=== PATIENT | female | born 1965 | race Caucasian/White ===

== ENCOUNTER 2019-09-19 14:41 | Outpatient (CLI) | payer OTHER, SELFPAY ==
--- NOTE | ~2019-09-19 | DEXA_ITS ---
BMD(1) Young-Adult(2) Age-Matched(3) Region (g/cm2) T-score Z-score WHO Classification L1 1.130 -0.1 0.5 Normal L2 1.149 -0.5 0.1 Normal L3 1.172 -0.4 0.2 Normal L4 1.167 -0.4 0.2 Normal L1-L4 1.156 -0.3 0.2 Normal Trend: L1-L4 Change vs Change vs Measured Age BMD(1) Baseline Previous Date ([age]) (g/cm2) (%) (%) 09/19/2019 [age] 1.156 baseline - 1 - Statistically 68% of repeat scans fall within 1SD (+- 0.010 g/cm2 for AP Spine L1-L4) 2 - [place] (Combined [employer]ANES (ages 20-30) / [employer] (ages 20-40)) AP Spine Reference Population (v112) 3 - Matched for Age, Weight (females 25-100 kg), Ethnic 11 - World Health Organization - Definition of Osteoporosis and Osteopenia for Women: Normal = T-score at or above -1.0 SD; Osteopenia = T-score between -1.0 and -2.5 SD; Osteoporosis = T-score at or below -2.5 SD; (WHO definitions only apply when a young healthy Women reference database is used to determine T-scores.) Printed: 09/19/2019 3:21:15 PM (13.60)76:3.00:50.00:12.0 0.00:9.48 0.60x1.05 22.7:%Fat=44.3% 0.00:0.00 0.00:0.00 Filename: [id number] Scan Mode: Standard;OneScan 37.0 Quip [id number] BMD(1) Young-Adult(2,7) Age-Matched(3) Region (g/cm2) T-score Z-score WHO Classification Neck Left 0.891 -1.1 -0.2 Osteopenia Right 0.883 -1.1 -0.3 Osteopenia Mean 0.887 -1.1 -0.2 Osteopenia Difference 0.008 0.1 0.1 - Total Left 0.992 -0.1 0.3 Normal Right 0.974 -0.3 0.2 Normal Mean 0.983 -0.2 0.3 Normal Difference 0.018 0.1 0.1 - Hip [place] Length Comparison (mm) (Right = 106.0 mm) (Mean = 105.6 mm) (Left = 110.4 mm) Trend: Total Mean Change vs Change vs Measured Age BMD(1) Baseline Previous Date (years) (g/cm2) (%) (%) 09/19/2019 53.9 0.983 baseline - 1 - Statistically 68% of repeat scans fall within 1SD (+- 0.010 g/cm2 for DualFemur Total) 2 - [place] (Combined NHANES (ages 20-30) / [employer] (ages 20-40)) Femur Reference Population (v112) 3 - Matched for Age, Weight (females 25-100 kg), Ethnic 7 - Dual[employer]emur Total T-score difference is 0.1. Asymmetry is None. 11 - World Health Organization - Definition of Osteoporosis and Osteopenia for Women: Normal = T-score at or above -1.0 SD; Osteopenia = T-score between -1.0 and -2.5 SD; Osteoporosis = T-score at or below -2.5 SD; (WHO definitions only apply when a young healthy Women reference database is used to determine T-scores.) Printed: 09/19/2019 3:21:16 PM (13.60); Filename: [id number]; Right Femur; 17.8:%Fat=28.9%; Neck Angle (deg)= 55; Scan Mode: Standard 37.0 uGy; Left Femur; 16.9:%Fat=32.0%; Neck Angle (deg)= 56; Scan Mode: Standard 37.0 uGy [employer] [id number] Dear Michaela Eubanks, Your patient Saida Stewart completed a BMD test on 09/19/2019 using the [employer] DXA System (analysis version: 13.60) manufactured by [employer]. The following summarizes the results of our evaluation. PATIENT BIOGRAPHICAL: Name: Saida Stewart Date: 1965 Height: 64.0 in. Gender: Female Exam Date: 09/19/2019 Weight: 164.0 lb
--- NOTE | ~2019-09-19 | MM_ITS ---
EXAMINATION: MM screening lyndsay BI w milka HISTORY: Screening mammogram TECHNIQUE: Craniocaudal and mediolateral oblique 3-D tomosynthesis images were obtained and synthetic 2-D images were generated. CAD analysis was submitted and interpreted. COMPARISON: 03/22/2017 BREAST PARENCHYMAL COMPOSITION: There are scattered areas of fibroglandular density. FINDINGS: There is no evidence of suspicious mass, calcification, or architectural distortion to sugg est malignancy in either breast. There has been no suspicious interval change. IMPRESSION: 1. No mammographic evidence of malignancy. 2. Recommend routine screening mammography in one year. BI-RADS Category 1: Negative Reviewed, dictated and finalized at location A.
== END 2019-09-19 14:42 | disposition home or self-care (01) ==
LOC: CHSIMG 14:45
PROVIDERS: PCP Physician Assistant; Visit Provider Nurse Practitioner Women's Health
DX: Z12.31 Encounter for screening mammogram for malignant neoplasm of breast (principal); M81.0 Age-related osteoporosis without current pathological fracture
CPT/HCPCS: 77063; 77067; 77080

== ENCOUNTER 2019-10-10 09:10 | Outpatient (CLI) | payer OTHER, SELFPAY ==
--- NOTE | ~2019-10-10 | XR_ITS ---
XR chest 2V DATE: 10/10/2019 09:25 INDICATION: Cough, shortness of breath TECHNIQUE: 2 views COMPARISON: 05/04/2016 PA chest FINDINGS: Normal heart size. No hilar or mediastinal enlargement. Mild aortic calcification and minim al unfolding. No pulmonary infiltrate or consolidation, pleural effusion or pulmonary vascular congestion or pneumo thorax. Diffuse osteopenia. IMPRESSION: No active cardiopulmonary disease Aortic atherosclerosis Osteopenia Reviewed, dictated and finalized at location B.
== END 2019-10-10 09:11 | disposition home or self-care (01) ==
LOC: CHSIMG 09:13
PROVIDERS: PCP Nurse Practitioner Family; Visit Provider Nurse Practitioner Family
DX: R05 Cough (principal)
CPT/HCPCS: 71046

== ENCOUNTER 2020-02-22 16:14 | Emergency (ER) | payer OTHER, SELFPAY ==
--- NOTE | ~2020-02-22 | XR_ITS ---
EXAMINATION: XR chest 2V DATE: 02/22/2020 16:39 INDICATION: Shortness of breath. TECHNIQUE: Frontal and lateral views of the chest were obtained. COMPARISON: Chest 2 views 10/10/2019 FINDINGS: There is mild scarring at the lung apices. No pleural effusion or pneumothorax. The heart s ize is normal. IMPRESSION: 1. Stable mild scarring at the lung apices. Reviewed, dictated and finalized at location A. R EXPEDITION GUIDE
[2020-02-22 16:14] VITALS: BP 144/101; PULSE 99; RESP 16; TEMP 36.9; O2SAT 95
--- NOTE | 2020-02-22 16:27 | ECG_ITS ---
Measurements Intervals [place] Rate: 89 P: 50 MN: 149 QRS: 69 QRSD: 95 T: 54 QT: 363 QTc: 442 Interpretive Statements SINUS RHYTHM NORMAL ECG Electronically Signed On 02-24-2020 7:21:31 [employer] UNION EXAMINER by Kenny Rogers D.O.
[2020-02-22 16:51] LABS: Basophils Absolute Auto 0.05 K/mm3 (0.00-0.10); Basophils Percent Auto 0.7 % (0.0-1.0); Eosinophils Absolute Auto 0.15 K/mm3 (0.02-0.50); Eosinophils Percent Auto 2.2 % (1.0-6.0); Hemoglobin 14.3 g/dL (12.0-15.0); Immature Granulocyte Absolute 0.02 K/mm3 (0.00-0.00); Immature Granulocyte Percent A 0.3 % (0.0-0.0); Lymphocytes Percent Auto 28.1 % (18.0-42.0); Mean Corpuscular Volume 91.1 fL (78.0-102.0); Mean Platelet Volume 9.9 fl (9.2-11.8); Monocytes Absolute Auto 0.36 K/mm3 (0.10-0.90); Monocytes Percent Auto 5.3 % (2.0-11.0); Neutrophils Absolute Auto 4.3 K/mm3 (1.7-7.2); Neutrophils Percent Auto 63.4 % (50.0-70.0); Platelet Count Result 221 K/mm3 (150-420); Red Blood Count 4.61 M/mm3 (4.20-5.40); Red Cell Distribution Width 12.4 % (11.6-14.4); White Blood Count 6.8 K/mm3 (4.8-10.8)
[2020-02-22 16:52] LABS: Add Urine Microscopic? YES; Appearance Urine Clear (Clear); Bilirubin Urine Negative (Negative); Blood Urine Negative (Negative); Color Urine Yellow (Yellow); Glucose Urine UA Negative (Negative); Ketones Urine Negative (Negative); Leukocyte Esterase Ur 1+ LEU/UL (Negative); Nitrate Urine Negative (Negative); Protein Urine Negative (Negative); Urobilinogen Urine 0.2 mg/dL (0.2-1.0)
[2020-02-22 16:56] LABS: Bacteria Urine 1+ /hpf; RBC Urine None seen /hpf (0-2); Squamous Epithelial Cell Urine Moderate /hpf (Few); WBC Urine 0-3 /hpf (0-3)
[2020-02-22 17:14] VITALS: BP 146/101; PULSE 94; RESP 15; O2SAT 95
[2020-02-22 17:20] LABS: Alanine Aminotransferase 21 U/L (14-59); Albumin Level 3.7 g/dL (3.4-5.0); Alkaline Phosphatase 62 U/L (46-116); Anion Gap 9 mmol/L (8-16); Aspartate Amino Transferase 13 U/L (15-37); Bilirubin,Total 0.3 mg/dL (0.00-1.00); Blood Urea Nitrogen 4 mg/dL (7-18); Calcium 8.7 mg/dL (8.5-10.1); Carbon Dioxide 28 mmol/L (21-32); Chloride 105 mmol/L (98-108); Estimated Glomerular Filt Rate > 60; Ethanol 4 mg/dL (0-6); Glucose 108 mg/dL (70-99); Osmolality Calculated 291 mOsm/kg (285-295); Phenytoin Dilantin < 1 ug/mL (10-20); Potassium 2.9 mmol/L (3.5-5.1); Salicylate 7.3 mg/dL (2.8-20.0); Sodium 142 mmol/L (136-145); Thyroid Stimulating Hormone 1.38 uIU/mL (0.36-3.74); Total Protein 6.5 g/dL (6.4-8.2)
[2020-02-22 17:22] LABS: Acetaminophen < 1 ug/mL (10-30)
--- NOTE | 2020-02-22 17:50 | ED.PSYCH ---
HPI - Psych General Chief Complaint: Psychiatric Symptoms Stated Complaint: 54YO w/ known h.o JESSE, Bipolar and schizophrenia currently on Risperdal here c/o racing thoughts and inability to calm down. Blames socioeconomic status and social issues in her family that make her feel this way. Denies suicidal or homicidal ideation.attempt. Related Data Home Medications Medication Instructions Recorded Confirmed risperidone 1 mg PO HS 02/22/20 02/22/20 Allergies Allergy/AdvReac Type Severity Reaction Status Date / Time codeine Allergy Intermediate hyper and Verified 09/03/19 08:54 anxious ibuprofen Allergy Intermediate Nausea and Verified 09/03/19 08:54 Vomiting Review of Systems Review of Systems: All systems reviewed & are unremarkable except as noted in HPI and below Constitutional: Constitutional: Reports no additional constitutional complaints Eyes: Eyes: Reports no additional eye complaints ENT: Reports system reviewed and no additional complaints, except as documented Cardiovascular: Cardiovascular: Reports no additional cardiovascular complaints Respiratory: Respiratory: Reports no additional respiratory complaints Gastrointestinal: Gastrointestinal: Reports no additional gastrointestinal complaints Genitourinary: Genitourinary: Reports no additional female genitourinary complaints Musculoskeletal: Musculoskeletal: Reports no additional musculoskeletal complaints Integumentary/Breasts: Skin/Breast: Reports system reviewed and no additional complaints, except as docu Neurologic: Reports system reviewed and no additional complaints, except as documented Psychiatric: Psychiatric: Reports anxiety, Denies homicidal ideation and Denies suicidal ideation Endocrine: Endocrine: Reports no additional endocrine complaints Hematologic/Lymphatic: Hematologic/Lymphatic: Reports no additional hematologic/lymphatic complaints Allergic/Immunologic: Allergic/Immunologic: Reports no additional allergic/immunologic complaints PMFSH Past Medical History Medical History Anxiety Bipolar 1 disorder, mixed Schizophrenia Seasonal allergies Exam Const: General: healthy appearing, no acute distress and alert Nutritional Appearance: well nourished and thin Orientation/consciousness: patient oriented x3 Limitations: no limitations HENMT: Head: normal to inspection Eyes: Conjunctivae: conjunctivae normal Pupils: Equal, round and reactive pupils present Neck: Neck: normal visual inspection Chest: Chest palpation & inspection: normal inspection of the chest Resp: Effort & Inspection: normal respiratory effort Auscultation: clear to auscultation bilaterally Cardio: Rate: regular rate Rhythm: regular rhythm GI: Inspection: non-distended GI Palp: Yes Soft to palpation, No Tenderness to palpation present (GI), No Guarding due to palpation present (GI) and No Rigid due to palpation : General: Yes no CVA tenderness Back/Spine/Pelvis: Back: no CVA tenderness Skin: General skin exam: normal color and no jaundice Rashes: no rashes Neuro: General: patient oriented x3, moves all extremities, no meningeal signs, no focal motor deficits and CN's II-XI intact bilaterally Cranial nerves: Yes Nystagmus not present Speech: normal speech Gait exam (Neuro): Normal gait present Extrem: General: normal to inspection Psych: Appearance: grossly normal Thought content: No Suicidality present, No Homicidality present and Yes other Other: Anxious Course Course Emergency Course: [facility] called and they recommend d/c patient home and having her continue her current medical regimen and f/u with Psych on tuesday. Vital Signs Vital signs: Vital Signs Temperature 98.5 F 02/22/20 16:14 Pulse Rate 99 02/22/20 16:14 Respiratory Rate 16 02/22/20 16:14 Blood Pressure 144/101 H 02/22/20 16:14 Pulse Oximetry 95 02/22/20 16:14 Temperature
[2020-02-22] MEDS: POTASSIUM CHLORIDE 20 MEQ TABLET 40 MEQ PO (17:59)
[2020-02-22 18:39] LABS: Amphetamine Screen Urine Negative (Negative); Barbiturate Screen Urine Negative (Negative); Benzodiazepines Screen Urine Negative (Negative); Cannabinoid Screen Urine Positive (Negative); Cocaine Screen Urine Negative (Negative); Methadone Screen Urine Negative (Negative); Opiate Screen Urine Negative (Negative); Phencyclidine Screen Urine Negative (Negative)
[2020-02-22 18:50] VITALS: PULSE 98; RESP 17; O2SAT 95
[2020-02-25 12:32] LABS: Lithium <0.15 mmol/L (0.60-1.20)
[2020-02-26 19:07] LABS: Carbamazepine Tegretol <0.2 mcg/mL (4.0-12.0)
[2020-02-27 07:00] LABS: Valproic Acid <4.0 mg/L (50.0-100.0)
== END 2020-02-22 18:52 | disposition home or self-care (01) ==
PROVIDERS: Emergency Provider Family Medicine; PCP Nurse Practitioner Family
DX: F20.9 Schizophrenia, unspecified (principal); F41.9 Anxiety disorder, unspecified
CPT/HCPCS: 36415; 71046; 80053; 80156; 80164; 80178; 80185; 80307; 81001; 84443; 85025; 87077; 87086; 87088; 93005; 99283; 99284; A9270

== ENCOUNTER 2021-11-19 19:37 | Emergency (ER) | payer OTHER, SELFPAY ==
--- NOTE | ~2021-11-19 | XR_ITS ---
EXAMINATION: XR soft tissue neck DATE: 11/19/2021 20:06 INDICATION: Foreign body sensation TECHNIQUE: AP and lateral views of the soft tissues of the neck were obtained. COMPARISON: None. FINDINGS: Indeterminate 5 x 3 mm ovoid calcific density projecting over the prevertebral soft posterior to the aerated hypopharynx at the level of C3. There is unable to be identified on the frontal projection. N o abnormal widening of the prevertebral soft tissues. Additional calcification of the thyroid cartila ge. Moderate lower cervical spondylosis with small posterior endplate osteophytes at C5-C6 resulting in mild central canal stenosis. Visualized portions of the lungs are clear. Superior mediastinum is u nremarkable. IMPRESSION: 1. Indeterminate 5 x 3 mm calcific density projecting posterior to the aerated hypopharynx in the pre vertebral soft tissues anterior to C3. Reviewed, dictated and finalized at location A. IMPRESSION: 1. Indeterminate 5 x 3 mm calcific density projecting posterior to the aerated hypopharynx in the prevertebral soft tissues anterior to C3.
[2021-11-19 19:45] VITALS: BP 112/70; PULSE 90; RESP 18; TEMP 36.6; O2SAT 97
[2021-11-19] MEDS: methylPREDNISolone ACETATE 40 MG/ML VIAL 80 MG IM (20:10)
--- NOTE | 2021-11-19 20:15 | ED.GENADULT ---
HPI - General Adult General Chief complaint: Unspecified Stated complaint: feels like something stuck in throat Time Seen by Provider: 11/19/21 19:38 Source: patient Mode of arrival: ambulatory Limitations: no limitations History of Present Illness HPI narrative: Patient presents with a one-week history of a foreign body sensation in her throat, but is able to complete sentences there is no audible upper airway wheezing is able to swallow there is no drooling, there is no fever chills no throat swelling no shortness of breath no nausea or vomiting. Onset (ago): week(s) Severity: mild Related Data Home Medications Medication Instructions Recorded Confirmed melatonin 5 mg capsule 5 mg PO .nightly 06/30/20 paliperidone palmitate 156 mg/mL 156 mg IM WEEKLY 11/19/21 11/19/21 intramuscular syringe (Invega Sustenna) Allergies Allergy/AdvReac Type Severity Reaction Status Date / Time codeine Allergy Intermediate hyper and Verified 06/30/20 07:48 anxious ibuprofen Allergy Intermediate Nausea and Verified 06/30/20 07:48 Vomiting Review of Systems Review of Systems: All systems reviewed & are unremarkable except as noted in HPI and below PMFSH Past Medical History Medical History Anxiety Bipolar 1 disorder, mixed Schizophrenia Seasonal allergies Surgical History Surgical History H/O: section Social History Social History Social History: , Has had 3 children, one child has . Smoking packs per day: 1 Smoking cigarettes per day: 20.0 Years smoked: 30 Smoking pack-years: 30.00 Smoking status: Current every day smoker Tobacco type: cigarettes Alcohol intake: never Substance use: never Substance use type: does not use Other substance usage details: Uses CBD oil Gender identity (if verbalized by the patient): Female Exam Const: General: cooperative, healthy appearing, comfortable and no acute distress HENMT: Head: normal to inspection General nose exam: Normal external nose present Mouth: Yes Normal oral and palatal mucosa present, Yes tongue normal, Yes Normal salivary glands and ducts present and Yes moist mucous membranes abnormal Throat: posterior oropharynx normal and tonsils normal Eyes: General: appearance normal, both eyes and all related structures Eyelids: eyelids normal Conjunctivae: conjunctivae normal Neck: Neck: normal visual inspection, full ROM, no lymphadenopathy, no meningeal signs, trachea midline and supple Chest: Chest palpation & inspection: normal inspection of the chest and normal palpation of entire chest wall Resp: Effort & Inspection: normal respiratory effort and able to speak in complete sentences Auscultation: clear to auscultation bilaterally Cardio: Jugular venous distension: no JVD Palpation: normal PMI Rate: regular rate Rhythm: regular rhythm GI: Inspection: normal to inspection Back/Spine/Pelvis: Back: no CVA tenderness Cervical Spine: normal cervical lordosis and pain with cervical ROM Thoracic/Lumbar Spine: thoracic and lumbar spine normal to inspection Skin: General skin exam: normal color and no rashes or lesions noted Neuro: General: oriented to person, oriented to place, oriented to time, patient oriented x3 and gait normal Extrem: General: normal to inspection, full ROM and capillary refill normal Psych: Appearance: grossly normal and well kempt Mental Status: mental status grossly normal Course Course Emergency Course: x-ray soft tissue of the neck was reviewed with patient, patient received a dose of Depo-Medrol. patient has foreign object her hypopharynx 3x5 act, but not compromising her airway she has had this for 1 week her O2 sats at 97% on room air with no audible wheezing no drooling no shortness of breath. Vit
[2021-11-19 21:19] VITALS: BP 112/80; PULSE 70; RESP 18; TEMP 36.6; O2SAT 99
== END 2021-11-19 21:22 | disposition home or self-care (01) ==
PROVIDERS: Emergency Provider Emergency Medicine
DX: T17.908A Unspecified foreign body in respiratory tract, part unspecified causing other injury, initial encounter (principal)
CPT/HCPCS: 70360; 96372; 99283; J1030